=== PATIENT | male | born 1960 | race Caucasian/White ===

== ENCOUNTER 2022-10-25 14:06 | Outpatient (REF) | payer BC, OTHER, SELFPAY ==
[2022-10-25 15:10] LABS: MANUAL DIFF FLAG NO
[2022-10-25 16:03] LABS: Basophils Absolute Auto 0.1 X10*3/uL (0.0-0.2); Basophils Percent Auto 0.8 % (0-2); Eosinophils Absolute Auto 0.2 X10*3/uL (0.0-0.4); Eosinophils Percent Auto 3.7 % (0-4); Hematocrit 44.6 % (42.0-52.0); Hemoglobin 14.2 g/dl (14.0-18.0); Imm Gran Abs Auto 0.01 X10*3/uL (0.00-0.03); Imm Gran Pct Auto 0.2 % (0.0-0.4); Lymphocytes Absolute Auto 1.5 X10*3/uL (1.2-4.9); Lymphocytes Percent Auto 22.9 % (20-40); Mean Corpuscular HGB Conc 31.8 g/dl (31.0-36.0); Mean Corpuscular Hemoglobin 28.1 pg (27.0-33.0); Mean Corpuscular Volume 88.1 fL (80.0-98.0); Mean Platelet Volume 10.3 fL (9.4-12.4); Monocytes Absolute Auto 0.6 X10*3/uL (0.1-1.2); Monocytes Percent Auto 9.2 % (2-11); Neutrophils Absolute Auto 4.1 x10*3/uL (2.0-8.3); Neutrophils Percent Auto 63.2 % (45-73); Platelet Count 249 X10*3/uL (160-400); Red Blood Count 5.06 X10*6/uL (4.60-5.80); White Blood Count 6.4 X10*3/uL (4.8-10.8)
[2022-10-25 16:30] LABS: Alanine Aminotransferase 17 U/L (0-40); Albumin Level 4.5 g/dL (3.5-5.0); Alkaline Phosphatase 81 U/L (39-117); Anion Gap 13 (12-20); Aspartate Amino Transferase 20 U/L (5-37); Bilirubin Total 0.5 mg/dL (0.0-1.0); Blood Urea Nitrogen 16 mg/dL (9-16); C Reactive Protein 0.48 mg/dL (< or = 0.50); Calcium 9.6 mg/dL (8.4-10.2); Carbon Dioxide 31 mmol/L (22-29); Chloride 101 mmol/L (96-108); Estimated Glomerular Filt Rate > 60; Glucose Random 120 mg/dL (60-115); Potassium 5.3 mmol/L (3.3-5.1); Sodium 140 mmol/L (135-145); Total Protein 7.6 g/dL (6.5-8.0)
[2022-10-25 16:48] LABS: Erythrocyte Sedimentation Rate 10 MM/HR (0-15)
[2022-10-26 14:14] LABS: HBS Num1 0.34 mIU/mL (0-7.99); HBc Num1 0.04 S/CO (0.00-0.79); HBsAGNum1 0.31 S/CO (0.00-0.99); Hepatitis A Antibody IgM 0.23 Index (0-0.79); Hepatitis B Core Antibody Nonreactive (Nonreactive); Hepatitis B Surface Antigen Negative (Negative); ~HepC Num1 0.33 S/CO (0.00-0.79); ~Hepatitis A Antibody IgM Nonreactive (Nonreactive); ~Hepatitis B Surface Antibody NONREACTIVE (Nonreactive); ~Hepatitis C Antibody Nonreactive (Nonreactive)
== END 2022-10-25 14:07 | disposition home or self-care (01) ==
LOC: HO.LAB 14:06
PROVIDERS: PCP Internal Medicine; Visit Provider Internal Medicine Rheumatology
DX: L40.50 Arthropathic psoriasis, unspecified (principal); Z79.1 Long term (current) use of non-steroidal anti-inflammatories (NSAID); Z79.899 Other long term (current) drug therapy
CPT/HCPCS: 36415; 80053; 85025; 85652; 86140; 86704; 86706; 86709; 86803; 87340

== ENCOUNTER → 2023-02-23 07:57 | Outpatient (BNVA) | payer BC, SELFPAY | PROVIDERS: PCP Internal Medicine; Visit Provider Internal Medicine Rheumatology ==

== ENCOUNTER 2023-08-24 07:51 | Outpatient (AMB) | payer BC, SELFPAY ==
--- NOTE | 2023-08-24 07:54 | MHC.OFFVIS ---
Intake Vital Signs 08/24/23 07:55 Height 5 ft 8 in Weight 204 lb 2.369 oz BMI 31.0 BP 132/72 Blood Pressure Location Lt brachial Position Sitting Pulse 86 Pulse Source Pulse Oximeter Temp 98.5 F Temp Source Skin Pulse Oximetry (%) 97 Oxygen Delivery Method Room Air Intake Visit Reasons: PSA/OA Intake Note: Patient last seen 02/23/23, presents today for follow up. Diabetes Physician Required: No Accompanied by: Self / Same As Patient Allergies No Known Allergies Allergy (Verified 08/24/23 07:54) Medication List - Last Reconciled 08/24/23 by Socrates Sims MD etanercept (Enbrel SureClick) 50 mg subcut QWEEK hydrochlorothiazide 25 mg PO DAILY hydrocortisone 1% 1 appl topical TID PRN ibuprofen 800 mg PO Q8H PRN levothyroxine 150 mcg PO DAILY lisinopril 5 mg PO DAILY HPI HPI Comments History of Present Illness Details The patient returns for evaluation of his psoriasis and psoriatic arthritis. He remains on Enbrel 50 mg every week. He has been on this for years and has had no side effects. He has no skin lesions of psoriasis to show me today. He does have available some hydrocortisone cream that he occasionally puts on dry skin. There is occasional discomfort in his hands where he has some OA as well. He does have ibuprofen available but has not been using it. He had some blood work done in the fall at [place] that looked okay. 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 Card Details: Negative chest pain, edema and syncope Resp Details: Negative for SOB, cough and wheezing GI Details: Negative indigestion/heartburn, nausea, abdominal pain, bowel changes, diarrhea, constipation and bloody stool. Skin/Breast Details: Negative for itching, rash, hives, Raynaud's symptoms, sun sensitivity, and skin cancer Endo Details: Negative for polyuria and polydypsia David/Lymph Details: Negative for excessive bruising or bleeding. Physical Exam Vital Signs: Last Vital Signs Temp 98.5 F 08/24/23 07:55 Pulse 86 08/24/23 07:55 BP 132/72 08/24/23 07:55 Pulse Ox 97 08/24/23 07:55 Oxygen Delivery Method Room Air 08/24/23 07:55 BMI result Body Mass Index 31.0 APPEARANCE: Patient in no acute distress EYES no redness, pupils equal and reactive to light, eyelids normal EXTREMITIES: No edema, no calf tenderness, normal peripheral pulses. SKIN: There is some slight dryness of the skin over the left olecranon region.. The area is not red or indurated. There is no raised lesions. Nails and scalp look normal. JOINT EXAM:?? Cervical Spine:.? Full range of motion with no discomfort at the extremes of motion.? No tenderness. Thoracic Spine:.? No scoliosis.? No tenderness on palpation. Lumbar Spine:.? Alignment normal.? Full range of motion with no discomfort at the extremes.? No tenderness. Chest Wall:.? No tenderness, swelling, increased warmth or erythema. Hands:.? Right: pain-free range of motion with some slight bony enlargement at the thumb IP, 2nd and 5th PIP joints.? These are not tender however.? There is also some slight bony enlargement without tenderness at the 4th and 5th DIP joints.? There is some nontender thickening along the 4th flexor tendons suggesting early Dupuytren's contracture.? Otherwise no other areas of soft tissue swelling, flexor tendon triggering or thenar atrophy.? Left:? There is flexion deformity at the 4th PIP were motion is somewhat limited but not painful.? He lacks about 30 degrees of full extension at that PIP joint. The joint itself is not tender. There is some slight bony enlargement however.? Elsewhere there is no tenderness or swelling in the MCP or PIP joints.? No flexor tendon triggering, thenar atrophy or sensory loss.. Wrists:.? Right:? no discomfort with extremes of flexion extension at 80 degrees; no swelling or tenderness.? Left:? Normal pain-free range of motion without tenderness, swelling, increased warmth or erythema. Elbows:. Normal pain-free range of motion without tenderness, swelling, increased warmth or erythema. Shoulders:? Right:? Normal pain-free range of motion with no tenderness, swelling or abductor weakness.? No adenopathy.? Left:? Full range of motion without pain. No tenderness, weakness, swelling, increased warmth or erythema. Hips:.? Full range of motion without pain. Hip bursa:.? No tenderness. Knees:?? Right:? Mild patellofemoral crepitus but pain-free range of motion.? There is no tenderness, effusion, soft tissue swelling, redness or warmth.? Left: Mild patellofemoral crepitus and no pain with extremes of flexion or extension.? There is no tenderness, effusion, redness or warmth. Ankles:? Normal pain-free range of motion without tenderness, swelling, increased warmth or erythema. Feet:.? Slight 1st MTP bony enlargement without tenderness.? Some degree of pes planus deformity with hammertoe deformity evident in the 2nd toe bilaterally.? None of these areas are tender and there is no soft tissue swelling or redness. Results Reviewed Results Reviewed: April 2023 lab work from [place]: White count 5.8, hemoglobin 13.9, A1c 6.4, TSH 10.11 October 2022 creatinine 1.10 Assessment & Plan Assessment & Plan (1) Osteoarthritis of hands, bilateral: Code(s): M19.041 - Primary osteoarthritis, right hand; M19.042 - Primary osteoarthritis, left hand (2) Osteoarthritis of knees, bilateral: Code(s): M17.0 - Bilateral primary osteoarthritis of knee (3) Psoriasis: Code(s): L40.9 - Psoriasis, unspecified (4) Psoriatic arthritis: Comment: Onset 2008; also some underlying DJD hands.Enbrel started 05/07 - Tapered off Enbrel 2013 but symptoms returned. Humira 40 [address] of the Enbrel, March 2014 through May but psoriatic arthritis symptoms continued. He was switched back to Enbrel in late 2013. Ran out of Enbrel in early 2021. Enbrel restarted October 2022 Code(s): L40.50 - Arthropathic psoriasis, unspecified Plan There is really no evidence for active psoriatic arthritis or psoriasis currently. He has some mild changes of osteoarthritis in the hands. Occasionally the knees have acted up in the past but they seem quiet right now with no swelling or tenderness. There is some underlying OA in the knees as well. He should continue with the Enbrel as above. A recheck visit in about 6 months is arranged. Medications: Refilled etanercept (Enbrel SureClick) 50 mg subcut QWEEK 4 mL 6RF L40.50 - Arthropathic psoriasis, unspecified Coding Level of Care Code Est Pt Level 3 (01065) Diagnoses Osteoarthritis of hands, bilateral M19.041; M19.042 Osteoarthritis of knees, bilateral M17.0 Psoriasis L40.9 Psoriatic arthritis L40.50
[2023-08-24 07:55] VITALS: BP 132/72; PULSE 86; TEMP 36.9; O2SAT 97; BMI 31.0
== END 2023-08-24 08:18 | disposition home or self-care (01) ==
PROVIDERS: PCP Internal Medicine; Visit Provider Internal Medicine Rheumatology
DX: M19.041 Primary osteoarthritis, right hand (principal); M19.042 Primary osteoarthritis, left hand; M17.0 Bilateral primary osteoarthritis of knee; L40.9 Psoriasis, unspecified; L40.50 Arthropathic psoriasis, unspecified
CPT/HCPCS: 99213

== ENCOUNTER → 2023-08-24 07:51 | Outpatient (BNVA) | payer BC, SELFPAY | PROVIDERS: PCP Internal Medicine; Visit Provider Internal Medicine Rheumatology ==

== ENCOUNTER 2024-02-17 08:56 | Outpatient (AMB) | payer BC, SELFPAY ==
[2024-02-17 09:12] VITALS: BP 118/62; PULSE 76; O2SAT 97; BMI 30.2
--- NOTE | 2024-02-17 09:12 | MHC.OFFVIS ---
Vital Signs 02/17/24 09:12 Height 5 ft 8 in Weight 198 lb 6.656 oz BMI 30.2 BP 118/62 Blood Pressure Location Rt brachial Position Sitting Pulse 76 Pulse Source Pulse Oximeter Pulse Oximetry (%) 97 Oxygen Delivery Method Room Air Intake Visit Reasons: psa/oa Intake Note: Patient last seen 08/24/[address] Sims, presents today for PsA/OA follow up. 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 Patricia 63yoF returns for evaluation of his psoriasis and psoriatic arthritis. He remains on Enbrel 50 mg every week. He has been on this for years and has had no side effects. He has no skin lesions of psoriasis to show me today. He does have available some hydrocortisone cream that he occasionally puts on dry skin. There is occasional discomfort in his hands where he has some OA as well. He does have ibuprofen available but has not been using it. 07/2023 : Levi The patient returns for evaluation of his psoriasis and psoriatic arthritis. He remains on Enbrel 50 mg every week. He has been on this for years and has had no side effects. He has no skin lesions of psoriasis to show me today. He does have available some hydrocortisone cream that he occasionally puts on dry skin. There is occasional discomfort in his hands where he has some OA as well. He does have ibuprofen available but has not been using it. He had some blood work done in the fall at [place] that looked okay. 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 SKIN: There is some slight dryness of the skin over the left olecranon region.. The area is not red or indurated. There is no raised lesions. Nails and scalp look normal. JOINT EXAM:?? Cervical Spine:.? Full range of motion with no discomfort at the extremes of motion.? No tenderness. Thoracic Spine:.? No scoliosis.? No tenderness on palpation. Lumbar Spine:.? Alignment normal.? Full range of motion with no discomfort at the extremes.? No tenderness. Chest Wall:.? No tenderness, swelling, increased warmth or erythema. Hands:.? Right: pain-free range of motion with some slight bony enlargement at the thumb IP, 2nd and 5th PIP joints.? These are not tender however.? There is also some slight bony enlargement without tenderness at the 4th and 5th DIP joints.? There is some nontender thickening along the 4th flexor tendons suggesting early Dupuytren's contracture.? Otherwise no other areas of soft tissue swelling, flexor tendon triggering or thenar atrophy.? Left:? There is flexion deformity at the 4th PIP were motion is somewhat limited but not painful.? He lacks about 30 degrees of full extension at that PIP joint. The joint itself is not tender. There is some slight bony enlargement however.? Elsewhere there is no tenderness or swelling in the MCP or PIP joints.? No flexor tendon triggering, thenar atrophy or sensory loss.. Wrists:.? Right:? no discomfort with extremes of flexion extension at 80 degrees; no swelling or tenderness.? Left:? Normal pain-free range of motion without tenderness, swelling, increased warmth or erythema. Elbows:. Normal pain-free range of motion without tenderness, swelling, increased warmth or erythema. Shoulders:? Right:? Normal pain-free range of motion with no tenderness, swelling or abductor weakness.? No adenopathy.? Left:? Full range of motion without pain. No tenderness, weakness, swelling, increased warmth or erythema. Hips:.? Full range of motion without pain. Hip bursa:.? No tenderness. Knees:?? Right:? Mild patellofemoral crepitus but pain-free range of motion.? There is no tenderness, effusion, soft tissue swelling, redness or warmth.? Left: Mild patellofemoral crepitus and no pain with extremes of flexion or extension.? There is no tenderness, effusion, redness or warmth. Ankles:? Normal pain-free range of motion without tenderness, swelling, increased warmth or erythema. Feet:.? Slight 1st MTP bony enlargement without tenderness.? Some degree of pes planus deformity with hammertoe deformity evident in the 2nd toe bilaterally.? None of these areas are tender and there is no soft tissue swelling or redness. Results Reviewed Results Reviewed: April 2023 lab work from [place]: White count 5.8, hemoglobin 13.9, A1c 6.4, TSH 10.11 October 2022 creatinine 1.10 Assessment & Plan Assessment & Plan (1) Psoriatic arthritis: Comment: Onset 2008; also some underlying DJD hands.Enbrel started 05/07 - Tapered off Enbrel 2013 but symptoms returned. Humira 40 [address] of the Enbrel, March 2014 through May but psoriatic arthritis symptoms continued. He was switched back to Enbrel in late 2013. Ran out of Enbrel in early 2021. Enbrel restarted October 2022 Code(s): L40.50 - Arthropathic psoriasis, unspecified Category: Medical (2) prison use of drug: Code(s): Z79.899 - Other predatory animal exterminator (current) drug therapy Category: Medical (3) Psoriasis: Code(s): L40.9 - Psoriasis, unspecified Category: Medical (4) Leg weakness, bilateral: Code(s): R29.898 - Other symptoms and signs involving the musculoskeletal system Category: Medical Plan #PsO/PsA: There is really no evidence for active psoriatic arthritis or psoriasis currently. He has some mild changes of osteoarthritis in the hands. Occasionally the knees have acted up in the past but they seem quiet right now with no swelling or tenderness. There is some underlying OA in the knees as well. He should continue with the Enbrel 50mg QW. Has not has to use Hydrocortisone in a long while. Patient mentioned, in passing, some leg weakness when climbing stairs - I ordered CK. #Halfway Use: will order updated labs today. Has been on Enbrel over 10 yeras. Denies any side effect. Patient is aware to hold Enbrel in the event of a fevers, infections, non-healing wound and surgery. TSH elevated in 04/2023 - Per patient being monitored by PCP. A recheck visit in about 6 months is arranged. Spent 20 mins reviewing history, evaluating patient and documenting. Orders: Orders Comprehensive Met. Panel Today L40.50 - Arthropathic psoriasis, unspecified, Z79.899 - Other predatory animal exterminator (current) drug therapy C Reactive Protein Today L40.50 - Arthropathic psoriasis, unspecified, Z79.899 - Other intermediate (current) drug therapy Erythrocyte Sedimentation Rate Today L40.50 - Arthropathic psoriasis, unspecified, Z79.899 - Other intermediate (current) drug therapy Complete Blood Count Auto Diff Today L40.50 - Arthropathic psoriasis, unspecified, Z79.899 - Other predatory animal exterminator (current) drug therapy Creatine Kinase Total Today L40.50 - Arthropathic psoriasis, unspecified, R29.898 - Other symptoms and signs involving the musculoskeletal system Medications: Refilled etanercept (Enbrel SureClick) 50 mg subcut QWEEK 4 mL 6RF L40.50 - Arthropathic psoriasis, unspecified Coding Level of Care Code Est Pt Level 3 (52130) Complex EM visit Add On G2211 Diagnoses Psoriatic arthritis 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
== END 2024-02-17 09:31 | disposition home or self-care (01) ==
PROVIDERS: PCP Internal Medicine; Visit Provider Nurse Practitioner Family
DX: L40.50 Arthropathic psoriasis, unspecified (principal); Z79.899 Other long term (current) drug therapy; L40.9 Psoriasis, unspecified; R29.898 Other symptoms and signs involving the musculoskeletal system
CPT/HCPCS: 99213

== ENCOUNTER → 2024-02-17 08:56 | Outpatient (BNVA) | payer BC, SELFPAY | PROVIDERS: PCP Internal Medicine; Visit Provider Nurse Practitioner Family ==

== ENCOUNTER 2024-02-17 09:37 | Outpatient (REF) | payer BC, SELFPAY ==
[2024-02-17 10:46] LABS: MANUAL DIFF FLAG NO
[2024-02-17 10:51] LABS: Basophils Percent Auto 0.5 % (0-2); Eosinophils Absolute Auto 0.2 X10*3/uL (0.0-0.4); Eosinophils Percent Auto 2.2 % (0-4); Hematocrit 42.2 % (42.0-52.0); Hemoglobin 13.7 g/dl (14.0-18.0); Imm Gran Abs Auto 0.01 X10*3/uL (0.00-0.03); Imm Gran Pct Auto 0.1 % (0.0-0.4); Lymphocytes Percent Auto 26.1 % (20-40); Mean Corpuscular HGB Conc 32.5 g/dl (31.0-36.0); Mean Corpuscular Hemoglobin 27.8 pg (27.0-33.0); Mean Corpuscular Volume 85.6 fL (80.0-98.0); Mean Platelet Volume 10.8 fL (9.4-12.4); Monocytes Absolute Auto 0.8 X10*3/uL (0.1-1.2); Monocytes Percent Auto 9.8 % (2-11); Neutrophils Absolute Auto 4.7 x10*3/uL (2.0-8.3); Neutrophils Percent Auto 61.3 % (45-73); Platelet Count 204 X10*3/uL (160-400); Red Blood Count 4.93 X10*6/uL (4.60-5.80); Red Cell Distribution Width 13.2 % (11.0-16.0); White Blood Count 7.7 X10*3/uL (4.8-10.8)
[2024-02-17 11:15] LABS: Alanine Aminotransferase 18 U/L (0-40); Albumin Level 4.6 g/dL (3.5-5.0); Alkaline Phosphatase 68 U/L (39-117); Anion Gap 14 (12-20); Aspartate Amino Transferase 19 U/L (5-37); Bilirubin Total 0.5 mg/dL (0.0-1.0); Blood Urea Nitrogen 21 mg/dL (9-16); C Reactive Protein 0.55 mg/dL (< or = 0.50); Calcium 9.7 mg/dL (8.4-10.2); Carbon Dioxide 29 mmol/L (22-29); Chloride 100 mmol/L (96-108); Estimated Glomerular Filt Rate > 60; Glucose Random 99 mg/dL (60-115); Potassium 4.2 mmol/L (3.3-5.1); Sodium 139 mmol/L (135-145); Total Protein 7.8 g/dL (6.5-8.0)
[2024-02-17 11:30] LABS: Erythrocyte Sedimentation Rate 10 MM/HR (0-15)
== END 2024-02-17 09:38 | disposition home or self-care (01) ==
LOC: HO.10HDL 09:37
PROVIDERS: Visit Provider Nurse Practitioner Family
DX: Z79.899 Other long term (current) drug therapy (principal); L40.50 Arthropathic psoriasis, unspecified; R29.898 Other symptoms and signs involving the musculoskeletal system
CPT/HCPCS: 36415; 80053; 82550; 85025; 85652; 86140

== ENCOUNTER 2024-10-24 15:40 | Outpatient (AMB) | payer BC, SELFPAY ==
--- NOTE | 2024-10-24 15:40 | A.OFFVIS_ITS ---
Vital Signs 10/24/24 15:45 Height 5 ft 8 in Weight 215 lb 2.738 oz BMI 32.7 BP 140/70 H Blood Pressure Location Lt brachial Position Sitting Pulse 83 Pulse Source Pulse Oximeter Pulse Oximetry (%) 98 Oxygen Delivery Method Room Air Intake Visit Reasons: PsO/PsA Intake Note: Patient presents for PsO/PsA. 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 At that time he was on Enbrel 50 mg every week and was doing well. Did not have any skin lesions of psoriasis. There was no evidence of active synovitis on examination either. Today, Patient Reports that he is doing overall well. No dactylitis, no joint pain, no prolonged morning stiffness Rheumatologic History: PsO/PsA Onset 2008; also some underlying DJD hands.Enbrel started 05/07 - Tapered off Enbrel 2013 but symptoms returned. Humira 40 [address] weekly tried in place of the Enbrel, March 2014 through May but psoriatic arthritis symptoms continued. He was switched back to Enbrel in late 2013. Ran out of Enbrel in early 2021. Enbrel restarted October 2022 Current Rheumatology Medication(s): Enbrel 50 mg SC every week [facility] Medical History (Updated 02/17/24 @ 09:24 by Kate Durham, [facility]) Leg weakness, bilateral Surgical History History of meniscal tear Family History Father Diabetes Mother Asthma Stroke Social History Household Members: Spouse Housing: House Alcohol intake: current Alcohol intake frequency: a few times a week Alcohol type: beer Patient Tobacco Use Status: Never used Tobacco e-Cigarette/Vaping Use: Never Used service: No Current occupational status: employed 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 Review of Systems Const Details: Review of Systems Constitutional: Denies fever, chills, weight loss ENT: Denies vision changes, eye pain or eye redness, dental caries, dry mouth GI: Denies nausea, vomiting, diarrhea, abdominal pain, change in BM Pulm: Denies SOB, ALTMAN, hemoptysis, wheezing Cards: Denies chest pain, palpitations Skin: Denies Raynaud's, rash, nail changes, photosensitivity, 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 Well appearing and in no apparent painful distress HEENT Conjunctiva and sclera clear. Pupils equal round and reactive to light. No lymphadenopathy. CHEST/RESPIRATORY SYSTEM Normal respiratory effort and able to speak in complete sentences. Clear to auscultation bilaterally. No crackles, rales, rhonchi, wheezes heard. CARDIAC SYSTEM Regular rate and rhythm. S1 and S2 heard no murmurs. Radial pulses intact bilaterally MSK Hands: left hand with flexion deformity at the DIPs and PIP unable to be reduced. Heberden nodes and Catrachita's nodes noted throughout. No evidence of synovitis or dactylitis. Right hand with good shank taper strength and Heberden's nodes no evidence of dactylitis or synovitis. Wrists: Full range of motion at the wrists without pain. No tenderness to palpation or synovitis noted to the wrists. Elbows: Full range of motion without pain. No tenderness, weakness, swelling, increased warmth or erythema. Shoulders: Full range of motion without pain. No tenderness, weakness, swelling, increased warmth or erythema. Hips: Full range of motion without pain. Hip bursa: No tenderness to palpation Knees: Full range of motion. No tenderness, swelling, increased warmth or erythema.?No effusion or crepitations Ankles: Full range of motion. No tenderness, swelling, increased warmth or erythema.? Feet: Negative squeeze test. No tenderness to palpation or swelling of the MTPs. Tender points:?No tenderness to palpation of the bilateral trapezius, supraspinatus, greater trochanters, anterior costochondral junctions, bilateral gluteal areas, bilateral suboccipital muscle insertions SKIN Skin intact without rashes. Results Reviewed Results Reviewed: Laboratory Tests 10/25/22 02/17/24 02/17/24 15:09 09:43 09:45 WBC 7.7 RBC 4.93 Hgb 13.7 L Hct 42.2 ESR 10 Sodium 139 Potassium 4.2 Chloride 100 Carbon Dioxide 29 BUN 21 H Creatinine 0.95 Total Bilirubin 0.5 AST 19 ALT 18 Alkaline Phosphatase 68 C-Reactive Protein 0.55 H Hepatitis A IgM Ab Nonreactive Hep Bs Antigen Negative Hep Bs Antibody NONREACTIVE Hep B Core Total Ab Nonreactive Hepatitis C Ab (EIA) Nonreactive Assessment & Plan Assessment & Plan (1) Psoriatic arthritis: Comment: Onset 2008; also some underlying DJD hands.Enbrel started 05/07 - Tapered off Enbrel 2013 but symptoms returned. Humira 40 [address] weekly tried in place of the Enbrel, March 2014 through May but psoriatic arthritis symptoms continued. He was switched back to Enbrel in late 2013. Ran out of Enbrel in early 2021. Enbrel restarted October 2022 Code(s): L40.50 - Arthropathic psoriasis, unspecified Category: Medical Plan: #PsO/PsA patient is a 64-year-old mle with psoriasis complicated by psoriatic arthritis. Currently on Enbrel and currently in remission. 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 Plan: #Long-term Use of TNF Inhibitors: Entanercept Discussed with the patient the benefits and risks of TNF inhibitors for the management of the rheumatic condition Benefits include reduce pain, maintenance of remission and reduction of flares as well as progression of the disease Risks include injection sites/infusion reactions, serious infections (such as bacterial infections, opportunistic infections), malignancy, delaminating syndro mes, autoimmune phenomena, CHF exacerbations, palmar plantar psoriasis and cytopenias Recommended rotating injection sites, and holding medication during and for up to 1 week after resolution of a febrile illness or open skin wound Plan I spent 20 minutes reviewing the record and labs, taking a history, examining the patient, discussing the treatment plan and documenting in the medical record Orders: Orders Comprehensive Met. 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 Erythrocyte Sedimentation Rate 6 Months L40.50 - Arthropathic psoriasis, unspecified, Z51.81 - Encounter for therapeutic drug level monitoring, Z79.620 - assisted (current) use of immunosuppressive biologic Hepatitis A,B,C Profile 6 Months L40.50 - Arthropathic psoriasis, unspecified, Z51.81 - Encounter for therapeutic drug level monitoring, Z79.620 - assisted (current) use of immunosuppressive biologic T Spot TB 6 Months L40.50 - Arthropathic psoriasis, unspecified, Z51.81 - Encounter for therapeutic drug level monitoring, 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 - 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 Complete Blood Count Auto Diff Today L40.50 - Arthropathic psoriasis, unspecified, Z79.899 - Other assisted (current) drug therapy Erythrocyte Sedimentation Rate Today L40.50 - Arthropathic psoriasis, unspecified, Z79.899 - 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
[2024-10-24 15:45] VITALS: BP 140/70; PULSE 83; O2SAT 98; BMI 32.7
--- OUTSIDE RECORDS SUMMARY | 2024-10-24 19:11 | XMS_ITS | Clinical Summary ---
Author Organization [address] [facility] Address [address] [place] [address] Phone Care Team Providers Care Child Neurologist Name Role Phone Betsy Judd MD Primary Care Provider [phone] Allergies No known active allergies Medications etanercept (EnbreL SureClick) 50 mg/mL (1 mL) injection pen 1 mL (50 mg total) 1 (one) time per week. inj 3 Active lisinopriL (PRINIVIL,ZESTR IL) 5 mg tablet Take 1 tablet by mouth once daily 90 tablet 5 Active levothyroxine (SYNTHROID, LEVOTHROID) 150 mcg tablet Take 1 tablet by mouth once daily 90 tablet 5 Active hydroCHLOROthia zide (HYDRODIURIL) 25 mg tablet Take 1 tablet (25 mg total) by mouth 1 (one) time each day. 90 tablet 1 5 Active hydroCHLOROthia zide (HYDRODIURIL) 25 mg tablet Take 1 tablet (25 mg total) by mouth 1 (one) time each day. 4 10/01/19 25 Discontinued Active Problems Problem Noted Date Diagnosed Date Aortic dilatation 06/14/2024 Overview (07/12/2024): mild, last ECHO 2023 Prediabetes 12/29/2018 Hyperglycemia 11/04/2017 Overview (07/12/2024): Peak HbA1c 6.2 EDUARDO (obstructive sleep apnea) 05/07/2013 Overview (07/12/2024): Patient does not use CPAP Dupuytren's contracture 04/27/2013 Overview (07/12/2024): Right fouth finger, mild Peyronie disease 06/02/2011 Psoriatic arthropathy 05/20/2009 Overview (07/12/2024): Onset 2008; also some underlying DJD hands.Enbrel started 05/07 - Tapered off Enbrel 2013 but symptoms returned. Humira 40 mg weekly tried in place of the Enbrel, March through May but psoriatic arthritis symptoms continued. He was switched back to Enbrel in late 2013. Psoriasis 02/14/2009 Condition not found 11/23/2006 Overview (07/12/2024): Hx of meniscal tear treated arthroscopy 2004 repeat: neg for tear; ? synovitis joint fluid non-inflammatory 2006 IMO Update Fall 2015 Essential hypertension, benign 11/14/2006 Hypothyroidism 11/14/2006 Morbid obesity 11/14/2006 Encounters Date Type Department Care Team Description 09/24/2024 8:30 AM EST Office Visit Vascular Surgery - [place] [address] [facility] [address] [place] [phone] Tomás Marcelo MD Peripheral venous insufficiency (Primary Dx); Asymptomatic varicose veins of both lower extremities 08/15/2024 10:30 AM EST Ancillary Procedure [facility] [address] [facility] [address] [place] [address] Popliteal artery aneurysm, bilateral (CMS/HCC) 08/06/2024 Telephone Vascular Surgery - [place] [address] [facility] [address] [place] [phone] Tomás Marcelo MD Appointment (No DX for Arterial/LAM) from Last 3 Months Immunizations Name Administration Dates Next Due H1N1 Inj Preservative Free 07/15/2009 Influenza Quadravalent, MDCK , 0.5ml, preservative free (Flucelvax) 6mo and older 06/25/2021 Influenza Quadravalent, MDCK , 0.5ml, with preservative (Flucelvax) 6mo and older 05/12/2018 Influenza trivalent, 0.5mL, preservative free (Fluarix; FluLaval; Fluzone) ages 6mo and older (Afluria) 3 years and older 06/14/2024 Moderna SARS-CoV-2 COVID-19, mRNA, LNP-S, preservative free 12/19/2020 Pneumococcal polysaccharide 23 valent (Pneumovax 23) 2yo and older 04/21/2012 Td Tetanus diptheria (Tdvax) 7yo and older 08/17 Tdap Tetanus diptheria acell ular pertussis (Boostrix; Adacel) 7yo and older 05/06/2017,11/14/2006 Surgical History Surgery Date Site/Laterality Comments HAND SURGERY PROCEDURE: HISTORICAL HAND SURGERY COLONOSCOPY 05/12/2012 PROCEDURE: KS COLONOSCOPY FLX DX W/COLLJ SPEC WHEN PFRMD; COMMENT: normal Medical History Medical History Date Comments Unspecified hypothyroidism 11/14/2006 DX:Un specified hypothyroidism Essential hypertension, benign 11/14/2006 D X:Essential hypertension, benign Morbid obesity (CMS/HCC) 11/14/2006 DX:Morb id obesity (HCC) Morbid obesity (CMS/HCC) 11/14/2006 DX:Morb id obesity (HCC) Osteoarthrosis, unspecified whether generalized or localized, lower leg 11/23/2006 DX:Osteoarthrosis, unspecified whether generalized or localized, lower leg; COMMENT: Hx of meniscal tear treated arthroscopy 2004 repeat: neg for tear; ? synovitis joint fluid non-inflammatory 2006 Contact dermatitis and other eczema due to other specified agent 11/23/2006 DX:Contact dermatitis and other eczema due to other specified agent; COMMENT: ? psoriasis Family History Medical History Relation Name Comments Breast cancer Aunt 1 Diabetes Father lived to 92 Asthma Mother Stroke Mother at age 62 Relation Name Status Comments Aunt 1 Aunt 2 Brother 1 (Age 42) CAD-PR Brother 2 Alive DIABETES Brother 3 Alive Daughter Alive Father DIABETES, CAD Mother ASTHMA, CHF Son Alive Social History Tobacco Use Types Packs/Day Years Used Date Smoking Tobacco: Never Smokeless Tobacco: Never Alcohol Use Standard Drinks/Week Comments Yes 0 (1 standard drink = 0.6 oz pur e alcohol) Sex and Gender Information Value Date Recorded Sex Assigned at Not on file Legal Sex Male 8:31 AM EST Gender Identity Not on file Sexual Orientation Not on file Obstetrics History Last Filed Vital Signs Vital Sign Reading Time Taken Comments Blood Pressure 110/70 09/24/2024 8:31 AM EST Pulse 78 09/24/2024 8:31 AM EST Temperature - - Respiratory Rate 16 09/24/2024 8:31 AM EST Oxygen Saturation - - Inhaled Oxygen Concentration - - Weight 94.3 kg (208 lb) 09/24/2024 8:31 AM EST Height 172.7 cm (5' 8 ) 09/24/2024 8:31 AM EST Body Mass Index 31.63 09/24/2024 8:31 AM EST Plan of Treatment Upcoming Encounters Date Type Department Care Team (Late st Contact Info) Description 12/13/2024 8:30 AM EDT Office Visit Adult Medicine [facility] [place] [address] [place] [address] Betsy Judd MD [address] [place] [address] Health Maintenance Due Date Last Done Comments Zoster Vaccines (1 of 2) 2011 Pneumococcal Vaccine: 50+ Years (2 of 2 - PCV) 04/21/2013 04/21/2012 Depression Screening 08/07/2022 HIV Screening 08/07/2022 Social Influencers of Health Screening 08/07/2022 Hypertension/CHF/CAD Annual BMP Blood Test 10/15/2023 10/15/2022 COVID-19 Vaccine ( - 2023- season) 2024 09/24/2021, 12/19/2020, 11/20/2020 DTaP,Tdap,and Td Vaccines (4 - Td or Tdap) 08/17/2028 08/17/2018, 05/06/2017, 11/14/2006 Cholesterol Screening (Lipid Panel) 12/06/2028 12/07/2023 Colorectal Cancer Screening: Colonoscopy 02/09/2034 02/10/2024 RSV Immunization Patients 60+ Years Old (1 - 1-dose 75+ series) 2036 Hepatitis C Screening Completed 10/22/2011 Pneumococcal Vaccine: Pediatrics (0 to 5 Years) and At-Risk Patients (6 to 64 Years) Aged Out 04/21/2012 No longer eligible based on patient's age to complete this topic Influenza Vaccine Completed 06/14/2024, , 05/12/2018, Additional history exists HIB Vaccines Aged Out No longer eligi ble based on patient's age to complete this topic HPV Vaccines Aged Out No longer eligi ble based on patient's age to complete this topic Hepatitis A Vaccines Aged Out No long er eligible based on patient's age to complete this topic Hepatitis B Vaccines Aged Out No long er eligible based on patient's age to complete this topic IPV Vaccines Aged Out No longer eligi ble based on patient's age to complete this topic MMR Vaccines Aged Out No longer eligi ble based on patient's age to complete this topic Meningococcal ACWY Vaccine Aged Out N o longer eligible based on patient's age to complete this topic Meningococcal B Vacine Aged Out No lo nger eligible based on patient's age to complete this topic RSV Immunization Patients Under 20 months Aged Out No longer eligible based on patient's age to complete this topic Varicella Vaccines Aged Out No longer eligible based on patient's age to complete this topic Procedures Procedure Name Priority Date/Time Associated Diagnosis Comments VAS US DUPLEX LOWER EXT ARTERIES BILAT WITH LAM Routine 08/15/2024 11:10 AM EST Popliteal artery aneurysm, bilateral (CMS/HCC) COLONOSCOPY Routine 02/10/2024 LIPID PANEL Routine 12/07/2023 ANNUAL BMP BLOOD TEST Routine 10/15/2022 HEPATITIS C SCREENING Routine 10/22/2011 from Last 3 Months or Most Recently Relevant to Health Maintenance Results * Vascular US duplex lower extremity arteries bilateral with LAM (08/15/2024 11:10 AM EST) Left Dist External Iliac PSV 124 cm/s CV VAS LAB Left Prox External Iliac PSV 102 cm/s CV VAS LAB Left AT dist sys PSV 82 cm/s CV VAS LAB Left AT mid sys PSV 55 cm/s CV VAS LAB Left AT prox sys PSV 62 cm/s CV VAS LAB Left B2B OUTSIDE SALES REPRESENTATIVE prox sys PSV 111 cm/s CV VAS LAB Left mid peroneal sys PSV 53 cm/s CV VAS LAB Left popliteal dist sys PSV 76 cm/s CV VAS LAB Left popliteal prox sys PSV 67 cm/s CV VAS LAB Left PT dist sys PSV 42 cm/s CV VAS LAB Left PT mid sys PSV 28 cm/s CV VAS LAB Left PT prox sys PSV 38 cm/s CV VAS LAB Left profunda sys PSV 115 cm/s CV VAS LAB Left super femoral dist sys PSV 67 cm/s CV VAS LAB Left super femoral mid sys PSV 87 cm/s CV VAS LAB Left super femoral prox sys PSV 87 cm/s CV VAS LAB Right Dist External Iliac PSV 106 cm/s CV VAS LAB Right Prox External Iliac PSV 105 cm/s CV VAS LAB Right AT dist sys PSV 65 cm/s CV VAS LAB Right AT mid sys PSV 47 cm/s CV VAS LAB Right AT prox sys PSV 90 cm/s CV VAS LAB Right B2B OUTSIDE SALES REPRESENTATIVE prox sys PSV 98 cm/s CV VAS LAB Right mid peroneal sys PSV 82 cm/s CV VAS LAB Right popliteal dist sys PSV 76 cm/s CV VAS LAB Right popliteal prox sys PSV 56 cm/s CV VAS LAB Right PT dist sys PSV 27 cm/s CV VAS LAB Right PT mid sys PSV 42 cm/s CV VAS LAB Right PT prox sys PSV 41 cm/s CV VAS LAB Right profunda sys PSV 62 cm/s CV VAS LAB Right super femoral dist sys PSV 56 cm/s CV VAS LAB Right super femoral mid sys PSV 87 cm/s CV VAS LAB Right super femoral prox sys PSV 87 cm/s CV VAS LAB Right arm BP 140 mmHg CV VAS LAB Left arm BP 138 mmHg CV VAS LAB Right posterior tibial 167 mmHg CV VAS LAB Right Dorsalis Pedis 150 mmHg CV VAS LAB Right LAM 1.19 CV VAS LAB Left posterior tibial 160 mmHg CV VAS LAB Left Dorsalis Pedis 151 mmHg CV VAS LAB Left LAM 1.14 CV VAS LAB Anatomical Region Laterality Modality Vascular, Abdomen Ultrasound Narrative 08/21/2024 11:58 AM EST Right leg: Normal ankle-brachial index (1.19). No evidence of popliteal artery aneurysm. No evidence of significant stenosis in the visualized arteries of the right lower extremity. Left leg: Normal ankle-brachial index (1.14). No evidence of popliteal artery aneurysm. There is evidence of a moderate stenosis (20-49%) in the mid PLASTIC FINISHER. Right LAM Right BP= 140/77 Left LAM Left BP= 138/80 Right Lower Arterial Duplex The distal external iliac artery has triphasic flow. The common femoral artery has triphasic flow. The profunda femoris artery has triphasic flow. The superficial femoral artery has triphasic flow. The popliteal artery has triphasic flow. No aneurysm seen. The anterior tibial artery has triphasic flow. The posterior tibial artery has triphasic flow. The mid peroneal artery has triphasic flow. Left Lower Arterial Duplex The distal external iliac artery has triphasic flow. The common femoral artery has triphasic flow. The profunda femoris artery has triphasic flow. The superficial femoral artery has triphasic flow. The popliteal artery has triphasic flow. No aneurysm seen. The anterior tibial artery has triphasic flow. The proximal posterior tibial artery has triphasic flow. The mid posterior tibial artery has biphasic flow. The distal posterior tibial artery has triphasic flow. The mid peroneal artery has triphasic flow. Singe Winder Details A rivero scale, color and doppler analysis ultrasound was performed. During the study longitudinal views were obtained. Pulsed wave doppler was performed. Sarah VINCENT CV VASCULAR PROCEDURES Final Result * Colonoscopy (02/10/2024) Pathologist [facility] Colonoscopy No interpretation , abstracted Anatomical Region Laterality Modality Other Historical Provider MD HEALTH MAINTENANCE Final Result * Lipid panel (12/07/2023) LDL/HDL Ratio 2 0 - 4 Triglycerides 62 0 - 150 mg/dL Cholesterol 173 0 - 200 mg/dL HDL 76 >=40 mg/dL LDL Cholesterol 85 0 - 100 mg/dL Blood Venous blood specimen / Unknown Historical Provider LAB BLOOD ORDERABLES Tianna l Result * Annual BMP Blood Test (10/15/2022) Annual BMP Blood Test Abstracted Historical Provider HEALTH MAINTENANCE Final Result * Hepatitis C Screening (10/22/2011) Pathologist [facility] Hepatitis C Screening Abstracted Historical Provider HEALTH MAINTENANCE Final Result from Last 3 Months or Most Recently Relevant to Health Maintenance Insurance [facility] ([facility]) Care Teams Child Neurologist Relationship Specialty Start Date End Date Betsy Judd MD [address] [place] [address] PCP - General Internal Medicine 01/09/16
--- OUTSIDE RECORDS SUMMARY | 2024-10-24 19:11 | XMS_ITS | Encounter Summary ---
Author Organization [facility] Address [address] [place] [address] Care Team Providers Care Slab Depiler Operator Name Role Phone Betsy Judd MD Primary Care Provider [phone] Reason for Visit * Reason Comments Peripheral Vascular Disease Leg Swelling Encounter Details Date Type Department Care Team (Late st Contact Info) Description 09/24/2024 8:30 AM EST Office Visit Vascular Surgery - [place] [address] [place] [address] Tomás Marcelo MD [address] [place] [address] Peripheral venous insufficiency (Primary Dx); Asymptomatic varicose veins of both lower extremities Social History Tobacco Use Types Packs/Day Years Used Date Smoking Tobacco: Never Smokeless Tobacco: Never Alcohol Use Standard Drinks/Week Comments Yes 0 (1 standard drink = 0.6 oz pur e alcohol) Sex and Gender Information Value Date Recorded Sex Assigned at Not on file Legal Sex Male 8:31 AM EST Gender Identity Not on file Sexual Orientation Not on file documented as of this encounter Last Filed Vital Signs Vital Sign Reading [...] Mass Index 31.63 09/24/2024 8:31 AM EST documented in this encounter Progress Notes * Igorchioma Cristobal [place] - 09/24/2024 8:30 AM EST Images from the original note were not included. 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 No evidence of popliteal artery aneurysm. No evidence of significant stenosis in the visualized arteries of the right lower extremity. Left leg: Normal ankle-brachial index (1.14). No evidence of popliteal artery aneurysm. There is evidence of a moderate stenosis (20-49%) in the mid BETTING CLERK. Procedure Details A rivero scale, color and doppler analysis ultrasound was performed. During the study longitudinal views were obtained. Pulsed wave doppler was performed. Lower Extremity Arterial Findings Right Lower Arterial Duplex The distal external iliac artery has triphasic flow. The common femoral artery has triphasic flow. The profunda femoris artery has triphasic flow. The superficial femoral artery has triphasic flow. The popliteal artery has triphasic flow. No aneurysm seen. The anterior tibial artery has triphasicflow. The posterior tibial artery has triphasic flow. The mid peroneal artery has triphasic flow. Right Segmental Pressures Right BP= 140/77 Left Lower Arterial Duplex The distal external [...] mid peroneal artery has triphasic flow. Left Segmental Pressures Left BP= 138/80 Iliac Artery Measurements PSV Rt EIA Prox 105 cm/s Rt EIA Dist 106 cm/s Lt EIA Prox 102 cm/s Lt EIA Dist 124 cm/s Right Lower Arterial Measurements PSV MANAGER OF NETWORK Prox 98 cm/s PFA 62 cm/s SFA Prox 87 cm/s SFA Mid 87 cm/s SFA Dist 56 cm/s Pop Prox 56 cm/s Pop Dist 76 cm/s BETTING CLERK Prox 41 cm/s BETTING CLERK Mid 42 cm/s BETTING CLERK Dist 27 cm/s JESUS ALBERTO Prox 90 cm/s JESUS ALBERTO Mid 47 cm/s JESUS ALBERTO Dist 65 cm/s Peroneal Mid 82 cm/s Left Lower Arterial Measurements PSV MANAGER OF NETWORK Prox 111 cm/s PFA 115 cm/s SFA Prox 87 cm/s SFA Mid 87 cm/s SFA Dist 67 cm/s Pop Prox 67 cm/s Pop Dist 76 cm/s BETTING CLERK Prox 38 cm/s BETTING CLERK Mid 28 cm/s BETTING CLERK Dist 42 cm/s JESUS ALBERTO Prox 62 cm/s JESUS ALBERTO Mid 55 cm/s JESUS ALBERTO Dist 82 cm/s Peroneal Mid 53 cm/s Segmental Pressure Measurements Right Left Brachial BP 140 mmHg 138 mmHg Post Tibial BP 167 mmHg 160 mmHg Dorsalis Pedis BP 150 mmHg 151 mmHg LAM 1.19 1.14 All Reviewers List MELISA Contreras on 08/21/2024 12:38 Signed at 1158 EST * Tomás Marcelo MD - 09/24/2024 8:30 AM EST Images from the original note were not included. PATIENT: Atul Patricia ENCOUNTER: 09/24/2024 EMRN: [id number] : 1960 PCP: Betsy Judd MD CHIEF COMPLAINT: Peripheral Vascular Disease and Leg Swelling HPI: This is a 64 y.o. male who presents for follow-up of bilateral leg pain. Patient claims that he hasachiness and heaviness within his thighs calves after extensive ambulation which has been present for approximately 3 years and has worsened. However, the symptoms have recently subsided. Patient denies any rest pain ulcers or gangrene. Patient has no history of tobacco abuse. Patient denies any back problems or ankle swelling. Patient has never worn compression stockings. Patient claims he livesin shorts encounter stockings during the summer. He does have some small varicose veins. He denies any tenderness within his varicose veins. Patient does have history of left knee issues. See MRI davie w. Patient has venous reflux studies and arterial duplex performed since his last visit. See findings below. Patient lives an active lifestyle and claims that heaviness in his legs occurs after walking extensively. He is able to walk 2 flights stairs without shortness of breath. 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 PAST MEDICAL HISTORY: (reviewed and unchanged) Patient Active Problem List Diagnosis Condition not found Aortic dilatation (CMS/HCC) Dupuytren's contracture Essential hypertension, benign Hyperglycemia Hypothyroidism Morbid obesity (CMS/HCC) EDUARDO (obstructive sleep apnea) Peyronie disease Prediabetes Psoriasis Psoriatic arthropathy (CMS/HCC) PAST SURGICAL HISTORY: (reviewed and unchanged) Past Surgical History: Procedure Laterality Date COLONOSCOPY 05/12/2012 PROCEDURE: ID COLONOSCOPY FLX DX W/COLLJ SPEC WHEN PFRMD; COMMENT: normal HAND SURGERY PROCEDURE: HISTORICAL HAND SURGERY MEDICATIONS: (reviewed, flow sheet updated) Outpatient Medications Marked as Taking for the 09/24/24 encounter (Office Visit) with Tomás Marcelo MD Medication Sig Dispense Refill etanercept (EnbreL SureClick) 50 mg/mL (1 mL) injection pen 1 mL (50 mg total) 1 (one) time per week. inj hydroCHLOROthiazide (HYDRODIURIL) 25 mg tablet Take 1 tablet (25 mg total) by mouth 1 (one) time each day. levothyroxine (SYNTHROID, LEVOTHROID) 150 mcg tablet Take 1 tablet by mouth once daily 90 tablet 0 lisinopriL (PRINIVIL,ZESTRIL) 5 mg tablet Take 1 tablet by mouth once daily 90 tablet 0 SOCIAL HISTORY: Social History Tobacco Use Smoking status: Never Smokeless tobacco: Never Substance Use Topics Alcohol use: Yes Drug use: No FAMILY HISTORY: Family History Problem Relation Name Age of Onset Diabetes Father lived to 92 Breast cancer Aunt Asthma Mother Stroke Mother at age 62 ALLERGIES: (reviewed, flow sheet updated) No Known Allergies ROS: GENERAL: No malaise, significant weight loss or fever NECK: No lumps, goiter, pain or significant neck swelling RESPIRATORY: No cough, wheezing or shortness of breath CARDIAC: No chest pain or palpitations GI: No abdominal discomfort MUSCULOSKELETAL: SEE HPI SKIN: No lesions, rash or itching NEURO: No persistent headache, syncope, seizures, weakness or numbness VASCULAR: SEE HPI PHYSICAL EXAM: Vitals: 09/24/24 0831 BP: 110/70 Pulse: 78 Resp: 16 Weight: 94.3 kg (208 lb) Height: 1.727 m (68 ) General: Alert and oriented by 3 no acute distress, well-nourished HEENT: Normocephalic atraumatic Neck: No JVD, no carotid bruit, carotid pulses present Chest: Clear to auscultation bilaterally Cardiac: Regular rate rhythm Abdomen: Soft, nontender, nondistended, no widened aortic pulse Extremity: -Right upper extremity: 2+ RA -Left upper extremity: 2+ RA -Right lower extremity: 2+ femoral, popliteal, DP and PT pulses palpable. He does have widened popliteal pulses. He has small reticular varicose veins in his legs and thighs. He has no hyperpigmentation or leg swelling. -Left lower extremity: 2+ femoral, popliteal, DP and PT pulses palpable. He does have widened popliteal pulses. He has small reticular varicose veins in his legs and thighs. He has no hyperpigmentation or leg swelling. Integumentary: No wounds Lymphatics: No lymphadenopathy Neuro: Grossly intact DIAGNOSTIC TESTING: Atul Patricia Vascular US duplex lower extremity arteries bilateral with LAM Order# [id number] Reading physician: Dagoberto Luke MD Ordering provider: MELISA Rivera Study date: 08/15/24 Patient Information Patient Name Atul Patricia Legal Sex Male (64 y.o.) Reason for Exam Priority: Routine Aneurysm of Femoral Artery or Popliteal Artery Dx: Popliteal artery aneurysm, bilateral (CMS/HCC) [I72.4 (ICD-10-CM)] PACS Images Show images for Vascular US duplex lower extremity arteries bilateral with LAM Procedure Melter Caster/Clinician: Maggie Doshi Supporting Staff: Performing Physician/Midlevel: None Interpretation Summary Show Result ComparisonRight leg: Normal ankle-brachial index (1.19). No evidence of popliteal artery aneurysm. No evidence of significant stenosis in the visualized arteries of the right lower extremity. Left leg: Normal ankle-brachial index (1.14). No evidence of popliteal artery aneurysm. There is evidence of a moderate stenosis (20-49%) in the mid BETTING CLERK. Procedure Details A rivero scale, color and doppler analysis ultrasound was performed. During the study longitudinal views were obtained. Pulsed wave doppler was performed. Lower Extremity Arterial Findings Right Lower Arterial Duplex The distal external iliac artery has triphasic flow. The common femoral artery has triphasic flow. The profunda femoris artery has triphasic flow. The superficial femoral artery has triphasic flow. The popliteal artery has triphasic flow. No aneurysm seen. The anterior tibial artery has triphasicflow. The posterior tibial artery has triphasic flow. The mid peroneal artery has triphasic flow. Right Segmental Pressures Right BP= 140/77 Left Lower Arterial Duplex The distal external [...] mid peroneal artery has triphasic flow. Left Segmental Pressures Left BP= 138/80 Iliac Artery Measurements PSV Rt EIA Prox 105 cm/s Rt EIA Dist 106 cm/s Lt EIA Prox 102 cm/s Lt EIA Dist 124 cm/s Right Lower Arterial Measurements PSV MANAGER OF NETWORK Prox 98 cm/s PFA 62 cm/s SFA Prox 87 cm/s SFA Mid 87 cm/s SFA Dist 56 cm/s Pop Prox 56 cm/s Pop Dist 76 cm/s BETTING CLERK Prox 41 cm/s BETTING CLERK Mid 42 cm/s BETTING CLERK Dist 27 cm/s JESUS ALBERTO Prox 90 cm/s JESUS ALBERTO Mid 47 cm/s JESUS ALBERTO Dist 65 cm/s Peroneal Mid 82 cm/s Left Lower Arterial Measurements PSV MANAGER OF NETWORK Prox 111 cm/s PFA 115 cm/s SFA Prox 87 cm/s SFA Mid 87 cm/s SFA Dist 67 cm/s Pop Prox 67 cm/s Pop Dist 76 cm/s BETTING CLERK Prox 38 cm/s BETTING CLERK Mid 28 cm/s BETTING CLERK Dist 42 cm/s JESUS ALBERTO Prox 62 cm/s JESUS ALBERTO Mid 55 cm/s JESUS ALBERTO Dist 82 cm/s Peroneal Mid 53 cm/s Segmental Pressure Measurements Right Left Brachial BP 140 mmHg 138 mmHg Post Tibial BP 167 mmHg 160 mmHg Dorsalis Pedis BP 150 mmHg 151 mmHg LAM 1.19 1.14 All Reviewers List MELISA Contreras on 08/21/2024 12:38 Signed at 1158 EST [facility] [place] [facility] Result Report Patient: Atul Patricia Date of Service: 10/15/20 Patient Gender: Male Ordering Provider: Socrates Sims : 1960 Final MRI OF LEG JOINT / LOWER EXTREMITY JOINT NO CONTRAST Exam Date: 10/15/2020 5:27 PM Ordering Diagnosis: Psoriatic arthropathy (HCC) Acute pain of left knee History: Left knee pain and swelling. Left knee MRI: Departmental standard knee MRI protocol was used. FINDINGS: There is a small radial tear at the junction of posterior horn and body of medial meniscus. There is probably some fraying of the free edge of the lateral aspect of the posterior horn. There are cystic changes in the posterior margin of the medial tibial plateau underlying the posterior horn of meniscus. There is some overlying thinning of the articular surface. The cystic changes are somewhat disproportionately matter degenerative change. This may represent intraosseous extension of a ganglion. There are also overlying fluid loculations seen within a small multiloculated Yap's cyst and extending along the margin of the semimembranosus tendon. There is some fluid in the medial proximal tibial bursa just distal to this with mild edema extending into the pes anserine. There is some ill-defined increased signal intensity at the medial aspect of the posterior horn of lateral meniscus without an identifiable discrete tear. Otherwise the lateral meniscus is intact. The PCL is intact. It is bowed superiorly and posteriorly passing over a loculated cystic structure between the PCL and [place] ligament. The ACL appears somewhat attenuated. There is diffuse mildly increased signal intensity likely representing mucoid degeneration. There is a small ganglion underlying the insertion distally. There is some bony irregularity of the overlying tibia with adjacent soft tissue edema. The collateral ligaments are intact. There is some minimal spurring at the margins of the medial and lateral compartments. The articular surfaces are well preserved. There is some fissuring of the central aspect of the patellar cartilage with underlying bony signal changes. IMPRESSION IMPRESSION: Medial meniscal tear. Extensive cystic loculations at the posterior medial aspect of the knee. This may all arise from the Yap's cyst or there may be a separate ganglion or ganglia. Fluid in the proximal medial tibial bursa suggesting bursitis. Degenerative changes most advanced in the patellofemoral compartment. Other findings as above. Reading Radiologist: I independently reviewed the studies along with the images. ASSESSMENT: 1. Peripheral venous insufficiency 2. Asymptomatic varicose veins of both lower extremities PLAN: 64 y.o. male with bilateral leg heaviness and achiness which has essentially resolved currently. Patient has no significant arterial disease and no popliteal aneurysms on arterial duplex. No further arterial workup is warranted. Follow-up as needed. Venous reflux studies were significant for venous reflux bilateral lower extremities as stated above. Given patient's symptoms have resolved no intervention is warranted at this time. We have recommended compression stockings. Compression stocking may explain why patient's symptoms have resolved. Patient to follow-up as needed. If his symptoms return he will be a candidate for intervention. Patient was counseled on risk factor modification. We discussed the natural pathophysiology of venous disease. All study findings were discussed with the patient at length. 33 minutes spent on patient encounter including time spent with patient, chart review, review of imaging/diagnostic studies, all necessary communications and documentation. documented in this encounter Plan of Treatment Upcoming Encounters Date Type Department Care Team (Late st Contact Info) Description 12/13/2024 8:30 AM EDT Office Visit Adult Medicine [address] [address] Betsy Judd MD [address] [place] [address] documented as of this encounter Visit Diagnoses Diagnosis Peripheral venous insufficiency- Primary Unspecified venous (peripheral) insufficiency Asymptomatic varicose veins of both lower extremities documented in this encounter Care Teams Slab Depiler Operator Relationship Specialty Start Date End Date Betsy Judd MD [address] [place] [address] PCP - General Internal Medicine 01/09/16 documented as of this encounter
== END 2024-10-24 16:11 | disposition home or self-care (01) ==
PROVIDERS: PCP Internal Medicine; Visit Provider Student in an Organized Health Care Education/Training Program
DX: L40.50 Arthropathic psoriasis, unspecified (principal); Z51.81 Encounter for therapeutic drug level monitoring; Z79.620 Long term (current) use of immunosuppressive biologic
CPT/HCPCS: 99213

== ENCOUNTER → 2024-10-24 15:40 | Outpatient (BNVA) | payer BC, SELFPAY | PROVIDERS: PCP Internal Medicine; Visit Provider Student in an Organized Health Care Education/Training Program ==

== ENCOUNTER 2024-10-31 07:47 | Outpatient (REF) | payer BC, SELFPAY ==
--- OUTSIDE RECORDS SUMMARY | 2024-10-31 07:51 | XMS_ITS | Clinical Summary ---
Author Organization [address] [facility] Address [address] [place] [address] Phone Care Team Providers Care Plumbing Drafter Name Role Phone Betsy Judd MD Primary Care Provider [phone] Allergies No known active allergies Medications etanercept (EnbreL SureClick) 50 mg/mL (1 mL) injection pen 1 mL (50 mg total) 1 (one) time per week. inj 11/27/2022 Active lisinopriL (PRINIVIL,ZESTRI L) 5 mg tablet Take 1 tablet by mouth once daily 90 tablet 08/30/2024 Active levothyroxine (SYNTHROID, LEVOTHROID) 150 mcg tablet Take 1 tablet by mouth once daily 90 tablet 08/30/2024 Active hydroCHLOROthiaz nicole (HYDRODIURIL) 25 mg tablet Take 1 tablet (25 mg total) by mouth 1 (one) time each day. 90 tablet 1 10/01/2024 Active Active Problems Problem Noted Date Diagnosed Date [...] for tear; ? synovitis joint fluid non-inflammatory 2005 IMO Update Fall 2015 Essential hypertension, benign 11/14/2006 Hypothyroidism 11/14/2006 Morbid obesity 11/14/2006 Encounters Date Type Department Care Team Description 09/24/2024 8:30 AM EST Office Visit Vascular Surgery - [place] [address] [place] [address] Tomás Marcelo MD Peripheral venous insufficiency (Primary Dx); Asymptomatic varicose veins of both lower extremities 08/15/2024 10:30 AM EST Ancillary Procedure [facility] [address] [facility] [address] [place] [address] Popliteal artery aneurysm, bilateral ([facility]/HCC) 08/06/2024 Telephone Vascular Surgery - [place] [address] [place] [phone] Tomás Marcelo MD Appointment (No DX for [...] PROCEDURE: HISTORICAL HAND SURGERY COLONOSCOPY 05/12/2012 PROCEDURE: [place] COLONOSCOPY FLX DX W/COLLJ SPEC WHEN PFRMD; [...] for tear; ? synovitis joint fluid non-inflammatory 2005 Contact dermatitis and other eczema due to other specified agent 11/23/2006 DX:Contact dermatitis and other eczema due to other specified agent; COMMENT: ? psoriasis Family History Medical History Relation Name Comments Breast cancer Aunt 1 Diabetes Father lived to 92 Asthma Mother Stroke Mother at age 62 Relation Name Status Comments Aunt 1 Aunt 2 Brother 1 (Age 42) CAD-KS Brother 2 Alive DIABETES Brother 3 Alive [...] 8:30 AM EDT Office Visit [place] [facility] [address] [place] [phone] Betsy Judd MD [address] [place] [address] Health Maintenance Due Date Last Done Comments [...] PSV 62 cm/s CV VAS LAB Left CUSTOMS BROKERAGE MANAGER prox sys PSV 111 cm/s CV VAS [...] PSV 90 cm/s CV VAS LAB Right CUSTOMS BROKERAGE MANAGER prox sys PSV 98 cm/s CV VAS [...] a moderate stenosis (20-49%) in the mid SHAMPOOER. Right LAM Right BP= 140/77 Left LAM [...] The mid peroneal artery has triphasic flow. Senior Clinical Study Manager Details A rivero scale, color and doppler analysis ultrasound was performed. During the study longitudinal views were obtained. Pulsed wave doppler was performed. Result [facility] Sarah VINCENT CV VASCULAR PROCEDURES Final Result * Colonoscopy (02/10/2024) [facility] Colonoscopy No interpretation , abstracted Anatomical Region Laterality Modality Other Result [facility] Historical Provider HEALTH MAINTENANCE Final Result * Lipid panel (12/07/2023) [facility] LDL/HDL Ratio 2 0 - 4 Triglycerides 62 0 - 150 mg/dL Cholesterol 173 0 - 200 mg/dL HDL 76 >=40 mg/dL LDL Cholesterol 85 0 - 100 mg/dL Blood Venous blood specimen / Unknown Result [facility] Historical Provider LAB BLOOD ORDERABLES Tianna l Result * Annual BMP Blood Test (10/15/2022) [facility] Annual BMP Blood Test Abstracted Historical Provider HEALTH MAINTENANCE Final Result * Hepatitis C Screening (10/22/2011) [facility] Hepatitis C Screening Abstracted Historical Provider HEALTH MAINTENANCE Final Result from Last 3 Months or Most Recently Relevant to Health Maintenance Insurance [facility]) Care Teams Plumbing Drafter Relationship Specialty Start Date End Date Betsy Judd MD [address] [place] [address] PCP - General Internal Medicine 01/09/16
[2024-10-31 10:23] LABS: MANUAL DIFF FLAG NO
[2024-10-31 10:39] LABS: Basophils Absolute Auto 0.1 X10*3/uL (0.0-0.2); Basophils Percent Auto 0.7 % (0-2); Eosinophils Absolute Auto 0.1 X10*3/uL (0.0-0.4); Eosinophils Percent Auto 1.7 % (0-4); Hematocrit 44.2 % (42.0-52.0); Hemoglobin 14.4 g/dl (14.0-18.0); Imm Gran Abs Auto 0.02 X10*3/uL (0.00-0.03); Imm Gran Pct Auto 0.3 % (0.0-0.4); Lymphocytes Percent Auto 25.9 % (20-40); Mean Corpuscular HGB Conc 32.6 g/dl (31.0-36.0); Mean Corpuscular Hemoglobin 27.7 pg (27.0-33.0); Mean Corpuscular Volume 85.2 fL (80.0-98.0); Mean Platelet Volume 11.1 fL (9.4-12.4); Monocytes Absolute Auto 0.6 X10*3/uL (0.1-1.2); Monocytes Percent Auto 7.6 % (2-11); Neutrophils Absolute Auto 4.8 x10*3/uL (2.0-8.3); Neutrophils Percent Auto 63.8 % (45-73); Platelet Count 217 X10*3/uL (160-400); Red Blood Count 5.19 X10*6/uL (4.60-5.80); Red Cell Distribution Width 12.8 % (11.0-16.0); White Blood Count 7.5 X10*3/uL (4.8-10.8)
[2024-10-31 11:24] LABS: Erythrocyte Sedimentation Rate 2 MM/HR (0-15)
[2024-10-31 11:31] LABS: Alanine Aminotransferase 41 U/L (0-40); Albumin Level 4.5 g/dL (3.5-5.0); Alkaline Phosphatase 66 U/L (39-117); Anion Gap 13 (12-20); Aspartate Amino Transferase 30 U/L (5-37); Bilirubin Total 0.7 mg/dL (0.0-1.0); Blood Urea Nitrogen 24 mg/dL (9-16); C Reactive Protein < 0.04 mg/dL (< or = 0.50); Calcium 9.5 mg/dL (8.4-10.2); Carbon Dioxide 28 mmol/L (22-29); Chloride 101 mmol/L (96-108); Estimated Glomerular Filt Rate 56; Glucose Random 133 mg/dL (60-115); Sodium 138 mmol/L (135-145)
[2024-10-31 11:35] LABS: HBc Num1 0.04 S/CO (0.00-0.79); HBsAGNum1 0.32 S/CO (0.00-0.99); Hepatitis A Antibody IgM 0.23 Index (0-0.79); Hepatitis B Core Antibody Nonreactive (Nonreactive); Hepatitis B Surface Antigen Negative (Negative); ~HepC Num1 0.24 S/CO (0.00-0.79); ~Hepatitis A Antibody IgM Nonreactive (Nonreactive); ~Hepatitis B Surface Antibody NONREACTIVE (Nonreactive); ~Hepatitis C Antibody Nonreactive (Nonreactive)
[2024-11-03 11:39] LABS: TS Negative Control Passed; TS Panel A 0; TS Panel B 1; TS Positive Control Passed; TSpotTB Negative (Negative)
== END 2024-10-31 07:48 | disposition home or self-care (01) ==
LOC: HO.10HDL 07:47
PROVIDERS: Visit Provider Student in an Organized Health Care Education/Training Program
DX: L40.50 Arthropathic psoriasis, unspecified (principal); Z79.899 Other long term (current) drug therapy
CPT/HCPCS: 36415; 80053; 85025; 85652; 86140; 86481; 86704; 86706; 86709; 86803; 87340

== ENCOUNTER 2025-05-06 14:50 | Outpatient (REF) | payer BC, SELFPAY ==
[2025-05-06 17:35] LABS: MANUAL DIFF FLAG NO
[2025-05-06 17:38] LABS: Hematocrit 44.2 % (42.0-52.0); Hemoglobin 14.8 g/dl (14.0-18.0); Imm Gran Abs Auto 0.01 X10*3/uL (0.00-0.03); Imm Gran Pct Auto 0.2 % (0.0-0.4); Lymphocytes Absolute Auto 1.6 X10*3/uL (1.2-4.9); Mean Corpuscular HGB Conc 33.5 g/dl (31.0-36.0); Mean Corpuscular Hemoglobin 28.5 pg (27.0-33.0); Mean Corpuscular Volume 85.2 fL (80.0-98.0); NRBC Abs Auto 0.000 X10*3/uL (0.0-0.012); NRBC Pct Auto 0.0 /100WBC (0.0-0.2); Platelet Count 196 X10*3/uL (160-400); Red Blood Count 5.19 X10*6/uL (4.60-5.80); White Blood Count 5.4 X10*3/uL (4.8-10.8)
[2025-05-06 17:53] LABS: Alanine Aminotransferase 60 U/L (0-40); Albumin Level 4.8 g/dL (3.5-5.0); Alkaline Phosphatase 78 U/L (39-117); Anion Gap 14 (12-20); Aspartate Amino Transferase 39 U/L (5-37); Blood Urea Nitrogen 20 mg/dL (9-16); Calcium 9.5 mg/dL (8.4-10.2); Carbon Dioxide 29 mmol/L (22-29); Chloride 103 mmol/L (96-108); Estimated Glomerular Filt Rate > 60; Potassium 4.4 mmol/L (3.3-5.1); Sodium 142 mmol/L (135-145); Total Protein 7.7 g/dL (6.5-8.0)
[2025-05-07 04:23] LABS: HBS Num1 0.00 mIU/mL (0-7.99); HBc Num1 0.04 S/CO (0.00-0.79); HBsAGNum1 0.40 S/CO (0.00-0.99); Hepatitis A Antibody IgM 0.18 Index (0-0.79); Hepatitis B Surface Antigen Negative (Negative); ~HepC Num1 0.14 S/CO (0.00-0.79); ~Hepatitis A Antibody IgM Nonreactive (Nonreactive); ~Hepatitis B Surface Antibody NONREACTIVE (Nonreactive); ~Hepatitis C Antibody Nonreactive (Nonreactive)
[2025-05-09 09:04] LABS: TS Negative Control Passed; TS Panel A 2; TS Panel B 0; TS Positive Control Passed; TSpotTB Negative (Negative)
== END 2025-05-06 14:51 | disposition home or self-care (01) ==
LOC: HO.HKASLDS 14:50
PROVIDERS: PCP Internal Medicine; Visit Provider Student in an Organized Health Care Education/Training Program
DX: Z51.81 Encounter for therapeutic drug level monitoring (principal); L40.50 Arthropathic psoriasis, unspecified; Z79.620 Long term (current) use of immunosuppressive biologic
CPT/HCPCS: 36415; 80053; 85025; 85652; 86140; 86481; 86704; 86706; 86709; 86803; 87340

== ENCOUNTER 2025-05-06 14:50 | Outpatient (AMB) | payer BC, SELFPAY ==
--- NOTE | 2025-05-06 14:57 | A.OFFVIS_ITS ---
Vital Signs 05/06/25 15:05 Height 5 ft 8 in Weight 210 lb 15.718 oz BMI 32.1 BP 142/90 H Blood Pressure Location Rt brachial Position Sitting Pulse 76 Pulse Source Pulse Oximeter Pulse Oximetry (%) 99 Oxygen Delivery Method Room Air Intake Visit Reasons: PsO/PsA Intake Note: Patient presents for PsO and PsA follow up. Allergies No Known Allergies Allergy (Verified 05/06/25 15:05) HPI Comments Details: Patient is a 64-year-old male with hypothyroidism, hypertension, polyarticular osteoarthritis involving the hands and knees, psoriasis complicated by psoriatic arthritis here today for follow up Interval History: Patient last seen 10/24/24 with me - On Enbrel 50mg SC weekly - In remission - No dactylitis, no joint pain, no prolonged morning stiffness Today - On Enbrel 50mg SC weekly - Continues to do well - No dactylitis, no joint pain, no prolonged morning stiffness Rheumatologic History: PsO/PsA Onset 2008; also some underlying DJD hands.Enbrel started 05/07 - Tapered off Enbrel 2013 but symptoms returned. Humira 40 mg weekly tried in place of the Enbrel, March 2014 through May but psoriatic arthritis symptoms continued. He was switched back to Enbrel in late 2013. Ran out of Enbrel in early 2021. Enbrel restarted October 2022 Current Rheumatology Medication(s): Enbrel 50 mg SC every week [facility] Medical History (Updated 02/17/24 @ 09:24 [facility] Leg weakness, bilateral Surgical History History of meniscal tear Family History Father Diabetes Mother Asthma Stroke Social History Household Members: Spouse Housing: House Alcohol intake: current Alcohol intake frequency: a few times a week Alcohol type: beer Patient Tobacco Use Status: Never used Tobacco e-Cigarette/Vaping Use: Never Used service: No Current occupational status: employed 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 Review of Systems Const Details: Review of Systems Constitutional: Denies fever, chills, weight loss ENT: Denies vision changes, eye pain or eye redness, dental caries, dry mouth GI: Denies nausea, vomiting, diarrhea, abdominal pain, change in BM Pulm: Denies SOB, ALTMAN, hemoptysis, wheezing Cards: Denies chest pain, palpitations Skin: Denies Raynaud's, rash, nail changes, photosensitivity, APARTMENT COMMUNITY MANAGER: Denies headaches, weakness, paresthesias, recurrent falls MSK: as per HPI All other systems reviewed and are unremarkable except noted above Physical Exam Exam Exam: Vital signs reviewed Physical Examination CONSTITUITIONAL Patient alert and cooperative. Well appearing and in no apparent painful distress HEENT Conjunctiva and sclera clear. No lymphadenopathy. MSK Hands * Right Hand: Able to make a fist. No swelling or tenderness to palpation of the MCPs, PIPs or DIPs. * Left Hand: Able to make a fist. No swelling or tenderness to palpation of the MCPs, PIPs or DIPs. * Flexion deformities with skin tightening, worst with the right 4th digit Wrists * Right Wrist: Full ROM to flexion and extension. No swelling or TTP * Left Wrist: Full ROM to flexion and extension. No swelling or TTP Elbows * Right Elbow: Full ROM. No swelling or TTP. No TTP of the medial epicondyle. No TTP of the lateral epicondyle * Left Elbow: Full ROM. No swelling or TTP. No TTP of the medial epicondyle. No TTP of the lateral epicondyle Shoulders * Right shoulder: Full ROM. No swelling noted. No TTP of the AC joint. No TTP of the subacromial bursa. No TTP of the posterior shoulder * Left shoulder: Full ROM. No swelling noted. No TTP of the AC joint. No TTP of the subacromial bursa. No TTP of the posterior shoulder Hip bursa: No tenderness to palpation bilaterally Knees * Right knee: Full ROM. No swelling noted. No TTP of the knee joint line. No TTP of pes anserine bursa * Left knee: Full ROM. No swelling noted. No TTP of the knee joint line. No TTP of pes anserine bursa. * Crepitations felt bilaterally Ankles * Right ankle: Good ankle dorsiflexion and plantar flexion. No swelling. No TTP of the ankle joint * Left ankle: Good ankle dorsiflexion and plantar flexion. No swelling. No TTP of the ankle joint Feet * Right foot: Negative squeeze test * Left foot: Negative squeeze test Tender points? * No tenderness to palpation of the bilateral trapezius, supraspinatus, anterior costochondral junctions, bilateral suboccipital muscle insertions SKIN No rashes Vital Signs: Last Vital Signs Pulse 76 05/06/25 15:05 BP 142/90 H 05/06/25 15:05 Pulse Ox 99 05/06/25 15:05 Oxygen Delivery Method Room Air 05/06/25 15:05 BMI result Body Mass Index 32.1 Results Reviewed Results Reviewed: Laboratory Tests 02/17/24 10/31/24 09:43 07:51 WBC 7.5 RBC 5.19 Hgb 14.4 Hct 44.2 Plt Count 217 ESR 2 Sodium 138 Potassium 4.0 Chloride 101 Carbon Dioxide 28 BUN 24 H Creatinine 1.29 AST 30 ALT 41 H C-Reactive Protein 0.55 H < 0.04 Infectious serologies 10/31/24 07:51 Hepatitis A IgM Ab Nonreactive Hep Bs Antigen Negative Hep Bs Antibody NONREACTIVE Hep B Core Total Ab Nonreactive Hepatitis C Ab (EIA) Nonreactive TB Test (T-Spot) Com Negative Assessment & Plan Assessment & Plan (1) Psoriatic arthritis: Comment: Onset 2008; also some underlying DJD hands.Enbrel started 05/07 - Tapered off Enbrel 2013 but symptoms returned. Humira 40 [address] weekly tried in [address] of the Enbrel, March 2014 through May but psoriatic arthritis symptoms continued. He was switched back to Enbrel in late 2013. Ran out of Enbrel in early 2021. Enbrel restarted October 2022 Code(s): L40.50 - Arthropathic psoriasis, unspecified Category: Medical Plan: #PsO/PsA Patient is a 64-year-old male with psoriasis complicated by psoriatic arthritis. Currently on Enbrel and currently in remission. Plan - Enbrel 50mg SC weekly - Labs today: CBC, CMP, ESR, CRP - RTC 6 months - Labs before visit: CBC, CMP, ESR, CRP, hepatitis panel, T spot (2) Encounter for monitoring of etanercept therapy: Code(s): Z51.81 - Encounter for therapeutic drug level monitoring; Z79.620 - FPC (current) use of immunosuppressive biologic Plan: #Long-term Use of TNF Inhibitors: Entanercept Discussed with the patient the benefits and risks of TNF inhibitors for the management of the rheumatic condition Benefits include reduce pain, maintenance of remission and reduction of flares as well as progression of the disease Risks include injection sites/infusion reactions, serious infections (such as bacterial infections, opportunistic infections), malignancy, delaminating syndromes, autoimmune phenomena, CHF exacerbations, palmar plantar psoriasis and cytopenias Recommended rotating injection sites, and holding medication during and for up to 1 week after resolution of a febrile illness or open skin wound Plan I spent 25 minutes reviewing the record and labs, taking a history, examining the patient, discussing the treatment plan and documenting in the medical record Coding Level of Care Code Est Pt Level 3 (28434) Complex EM visit Add On G2211 Diagnoses Psoriatic arthritis L40.50 Encounter for monitoring of etanercept therapy Z51.81; Z79.620
[2025-05-06 15:05] VITALS: BP 142/90; PULSE 76; O2SAT 99; BMI 32.1
--- OUTSIDE RECORDS SUMMARY | 2025-05-06 18:06 | XMS_ITS | Clinical Summary ---
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 90 tablet 04/05/2025 Active Active Problems Problem Noted Date Diagnosed Date Aortic dilatation (CMS/HCC V24) 06/14/2024 Overview (07/12/2024): mild, last ECHO 2023 Prediabetes 12/29/2018 Hyperglycemia 11/04/2017 Overview (07/12/2024): Peak HbA1c 6.2 EDUARDO (obstructive sleep apnea) 05/07/2013 Overview (07/12/2024): Patient does not use CPAP Dupuytren's contracture 04/27/2013 Overview (07/12/2024): Right fouth finger, mild Peyronie disease 06/02/2011 Psoriatic arthropathy ([facility] V24, [facility] V28) 05/20/2009 Overview (07/12/2024): Onset 2008; also some [...] hypertension, benign 11/14/2006 Hypothyroidism 11/14/2006 Morbid obesity ([facility] V24, [facility] V28) 2006 Immunizations Name Administration Dates Next Due H1N1 [...] PROCEDURE: HISTORICAL HAND SURGERY COLONOSCOPY 05/12/2012 PROCEDURE: CT COLONOSCOPY FLX DX W/COLLJ SPEC WHEN PFRMD; COMMENT: normal Medical History Medical History Date Comments Unspecified hypothyroidism 11/14/2006 DX:Un specified hypothyroidism Essential hypertension, benign 11/14/2006 D X:Essential hypertension, benign Morbid obesity ([facility] V24, [facility] V28) 11/14/2006 DX:Morbid obesity (HCC) Morbid obesity ([facility] V24, [facility] V28) 11/14/2006 DX:Morbid obesity (HCC) Osteoarthrosis, unspecified whether generalized or [...] cancer Aunt 1 Diabetes Father lived to Asthma Mother Stroke Mother at age 62 Relation Name Status Comments Aunt 1 Aunt 2 Brother 1 (Age 42) CAD-[place] Brother 2 Alive DIABETES Brother 3 Alive Daughter Alive Father DIABETES, CAD Mother ASTHMA, CHF Son Alive Social History Tobacco Use Types Packs/Day Years Used Date Smoking Tobacco: Never Smokeless Tobacco: Never Tobacco Cessation:Counseling Given: Not Answered Alcohol Use Standard Drinks/Week Comments Yes 0 (1 standard drink = 0.6 oz pur e alcohol) Sex and Gender Information Value Date Recorded Sex Assigned at Not on file Legal Sex Male 8:31 AM EST Gender Identity Not on file Sexual Orientation Not on file Obstetrics History Last Filed Vital Signs Vital Sign Reading Time Taken Comments Blood Pressure 138/88 12/13/2024 8:34 AM EDT Pulse 78 12/13/2024 8:34 AM EDT Temperature 36.6 C (97.9 F) 12/13/2024 8:34 AM EDT Respiratory Rate 16 12/13/2024 8:34 AM EDT Oxygen Saturation - - Inhaled Oxygen Concentration - - Weight 96.6 kg (213 lb) 12/13/2024 8:34 AM EDT Height 172.7 cm (5' 8 ) 12/13/2024 8:34 AM EDT Body Mass Index 32.39 12/13/2024 8:34 AM EDT Plan of Treatment Upcoming Encounters Date Type Department Care Team (Late st Contact Info) Description 06/20/2025 8:30 AM EDT [place] Visit [place] [facility] [place] [address] [place] [address] Betsy Judd MD [address] [place] [address] Health Maintenance Due Date Last Done Comments Zoster Vaccines (1 of 2) 2011 Pneumococcal Vaccine: 50+ Years (2 of 2 - PCV) 04/21/2013 04/21/2012 HIV Screening 08/07/2022 Social Influencers of Health Screening 08/07/2022 Depression Screening 08/29/2024 COVID-19 Vaccine (4 - 2024- season) 2025 09/24/2021, 12/19/2020, 11/20/2020 Influenza Vaccine (#1) 2025 , 06/25/2021, 05/12/2018, Additional history exists Hypertension/CHF/CAD Annual BMP Blood Test 12/14/2025 12/14/2024, 10/15/2022 DTaP,Tdap,and Td Vaccines (4 - Td or Tdap) 08/17/2028 08/17/2018, 05/06/2017, 11/14/2006 Cholesterol Screening (Lipid Panel) 12/06/2028 12/07/2023 Colorectal Cancer Screening: Colonoscopy 02/09/2034 02/10/2024 RSV Immunization Adult Patients (1 - 1-dose 75+ series) 2036 Hepatitis C Screening Completed 10/22/2011 HIB Vaccines Aged Out No longer eligi [...] age to complete this topic Meningococcal B Vaccine Aged Out No l onger eligible based on patient's age to complete this topic RSV Immunization Patients Under 20 months Aged Out No longer eligible based on patient's age to complete this topic Varicella Vaccines Aged Out No longer eligible based on patient's age to complete this topic Procedures Procedure Name Priority Date/Time Associated Diagnosis Comments BASIC METABOLIC PANEL Routine 12/14/2024 8:40 AM EDT Essential hypertension, benign Hyperglycemia COLONOSCOPY Routine 02/10/2024 LIPID PANEL Routine 12/07/2023 HEPATITIS C SCREENING Routine 10/22/2011 from Last 3 Months or Most Recently Relevant to Health Maintenance Results * (ABNORMAL) Basic metabolic panel (12/14/2024 8:40 AM EDT) Sodium 136 133 - 145 mmol/L LAB CHEMISTRY METHOD 12/14/2024 12:[address] [facility] Potassium 4.1 3.5 - 5.5 mmol/L LAB CHEMISTRY METHOD 12/14/2024 12:[address] [facility] Chloride 100 96 - 110 mmol/L LAB CHEMISTRY METHOD 12/14/2024 12:[address] [facility] CO2 28 21 - 32 mmol/L LAB CHEMISTRY METHOD 12/14/2024 12:[address] [facility] Anion Gap 8 3 - 11 LAB CHEMISTRY METHOD 12/14/2024 12:[address] [facility] Glucose 135(H) 70 - 100 mg/dL LAB CHEMISTRY METHOD 12/14/2024 12:[address] [facility] BUN 29(H) 5 - 25 mg/dL LAB CHEMISTRY METHOD 12/14/2024 12:[address] [facility] Creatinine 1.09 0.70 - 1.30 mg/dL LAB CHEMISTRY METHOD 12/14/2024 12:43 PM EDT [facility] eGFR 76 >=60 mL/min/1. 73m2 LAB CHEMISTRY METHOD 12/14/2024 12:43 PM EDT [facility] Comment:Calculation based on the Chronic Kidney Disease Epidemiology Collaboration (CKD-EPI) equation refit without adjustment for race. BUN/Creatinine Ratio 26.6 LAB CHEMISTRY METHOD 12/14/2024 12:43 PM EDT [facility] Calcium 9.3 8.5 - 10.5 mg/dL LAB CHEMISTRY METHOD 12/14/2024 12:43 PM EDT [facility] Blood Venous blood specimen / Unknown Venipuncture / Unknown 12/14/2024 8:40 AM EDT 12/14/2024 8:40 AM EDT Betsy Judd MD LAB BLOOD ORDERABLES Final Resul t [facility] [address] [place] [address], [place] [phone] * Colonoscopy (02/10/2024) [facility] Colonoscopy No interpretation , abstracted Anatomical Region Laterality Modality Other Shi Dent MD HEALTH MAINTENANCE Final Result * Lipid panel (12/07/2023) [facility] LDL/HDL Ratio 2 0 - 4 Triglycerides 62 0 - 150 mg/dL Cholesterol 173 0 - 200 mg/dL HDL 76 >=40 mg/dL LDL Cholesterol 85 0 - 100 mg/dL Blood Venous blood specimen / Unknown Shi Dent MD LAB BLOOD ORDERABLES Tian[place] l Result * Hepatitis C Screening (10/22/2011) [facility] Hepatitis C Screening Abstracted Shi Dent MD HEALTH MAINTENANCE Final Result from Last 3 Months or Most Recently Relevant to Health Maintenance Insurance [facility] Care Teams Smoked Meat Preparer Relationship Specialty Start Date End Date Btesy Judd MD [address] [place] [address] PCP - General Internal Medicine 01/09/16
== END 2025-05-06 15:23 | disposition home or self-care (01) ==
LOC: HO.RHES 14:50
PROVIDERS: PCP Internal Medicine; Visit Provider Student in an Organized Health Care Education/Training Program
DX: L40.50 Arthropathic psoriasis, unspecified (principal); Z51.81 Encounter for therapeutic drug level monitoring; Z79.620 Long term (current) use of immunosuppressive biologic
CPT/HCPCS: 99213